=== PATIENT | male | born 1990 | race Two or more races ===

== ENCOUNTER → 2019-12-27 | Outpatient (CLI) | payer OTHER ==
--- NOTE | 2019-12-27 13:28 | KCIC ---
Single view chest dated 12/27/2019. No comparison available. Clinical data indication: TB exposure. FINDINGS: Single upright view of the chest shows normal heart and mediastinal contours. Lungs are clear. No consolidation or pleural effusion. No pneumothorax. IMPRESSION: No acute radiographic abnormality. No radiographic evidence of active tuberculosis. Electronically signed by: Anthony Solares MD (12/27/2019 1:25 PM) [id number]
== END | disposition home or self-care (01) ==
LOC: KCIC 11:08
PROVIDERS: ATTEND Family Medicine
DX: Z20.1 Contact with and (suspected) exposure to tuberculosis (principal)
CPT/HCPCS: 71045